=== PATIENT | male | born 1940 | race Hispanic/Latino ===

== ENCOUNTER 2019-01-20 06:19 | Day surgery (SDC) | payer MEDICARE ==
[2019-01-20] MEDS ORDERED: NACL 0.9% 500 ML 500 ML IV SCH (07:00)
[2019-01-20] MEDS ORDERED: HEPARIN 10,000 UNITS/10 ML ONE (08:23)
[2019-01-20] MEDS ORDERED: VERSED ONE (08:23)
[2019-01-20] MEDS ORDERED: XYLOCAINE 2% INFILTRATI ONE (08:23)
[2019-01-20] MEDS ORDERED: SUBLIMAZE ONE (08:23)
[2019-01-20] MEDS ORDERED: HEPARIN/NS 5000 UNIT/500ML(CATH LAB) 1,000 ML IR ONE (08:23)
[2019-01-20] MEDS ORDERED: NITROGLYCERIN SYRINGE 3 ML ONE (08:23)
[2019-01-20] MEDS ORDERED: CALAN ONE (08:23)
--- NOTE | 2019-01-20 09:59 | Short Stay Summary ---
Short Stay Documentation Date of service: 01/20/19 - History H&P: obtained from office - Allergies and Medications Current Medications: Allergies shellfish derived Allergy (Severe, Verified 01/20/19 07:37) Swelling iodine Adverse Reaction (Severe, Verified 01/20/19 07:37) Swelling Penicillins Adverse Reaction (Intermediate, Verified 01/20/19 07:37) Itching Home Medications Medication Instructions Recorded Confirmed Last Taken Type Aspirin [Adult Aspirin] 81 mg PO DAILY 01/20/19 01/20/19 01/19/19 History Clopidogrel [Plavix] 75 mg PO QDAY 01/20/19 01/20/19 01/19/19 History Gabapentin [Neurontin] 300 mg PO TID 01/20/19 01/20/19 01/19/19 History HYDROcodone/ACETAMINOPHEN 1 tab PO BID PRN 01/20/19 01/20/19 01/19/19 History [Hydrocodone-Acetamin 5-325 mg] Losartan [Cozaar] 100 mg PO QDAY 01/20/19 01/20/19 01/19/19 History Multivit with Calcium,Iron,Min 1 each PO DAILY 01/20/19 01/20/19 01/19/19 History [One Daily Women's] Omeprazole 40 mg PO DAILY 01/20/19 01/20/19 01/19/19 History Sertraline [Zoloft] 50 mg PO DAILY 01/20/19 01/20/19 01/19/19 History Triamterene/Hydrochlorothiazid 1 tab PO DAILY 01/20/19 01/20/19 01/19/19 History [Triamterene-Hctz 37.5-25 mg Tb] prednisoLONE [Millipred] 5 mg PO Q48HR 01/20/19 01/20/19 01/19/19 History Active Medications Sodium Chloride (Nacl 0.9% 500 Ml) 500 mls @ 50 mls/hr IV DIRECT TYLER Stop: 01/20/19 16:59 Last Admin: 01/20/19 07:39 Dose: 50 mls/hr Documented by: - Brief post op/procedure progress note Date of procedure: 01/20/19 Pre-op diagnosis: claudication Post-op diagnosis: same Procedure: see report Anesthesia: local Estimated blood loss: none Pathology: none - Disposition Condition at discharge: Good Disposition: [id number] TO HOME OR SELFCARE - Discharge Diagnoses (1) PAD (peripheral artery disease) Status: Acute (2) Hypertension Status: Chronic Qualifiers: Hypertension type: essential hypertension Qualified Code(s): I10 - Essential (primary) hypertension (3) Hyperlipemia, mixed Status: Chronic (4) Arthritis, rheumatoid Status: Chronic Short Stay Discharge Plan Activity: advance as tolerated Diet: low fat, low cholesterol, low salt Wound: keep clean and dry Follow up with: GIA SANTOS MD [Primary Care Provider] - 7 Days
[2019-01-20 10:16] VITALS: BP 147/62
--- NOTE | 2019-01-20 13:31 | Cardiac Catherization Report ---
PERIPHERAL ANGIOGRAM CLINICAL INFORMATION: This is a 79-year-old gentleman with history of hypertension and cholesterol who has been having claudication symptoms, abnormal ultrasound and is aspirin and Plavix with mild relief. He is here for peripheral angiogram. It was done under moderate sedation with 0.5 mg Versed and 50 mcg fentanyl. Start time was 8:41 a.m., finished at 8:56 a.m., that was 15 minutes of moderate supervised sedation. DESCRIPTION OF PROCEDURE: Procedure was performed via the right radial artery, sterile technique, local anesthesia, 6-[place] radial sheath inserted. Using a guidewire and a JR4 catheter, I was able to navigate into the descending aorta, exchanged out for a long pigtail catheter and angiogram done showed diffuse disease in the abdominal aorta with no gradient across the distal aorta to the mid on pullback. 1. Right common iliac patent, left common iliac focal 95% lesion, right external and left external iliac patent, bilateral internal iliacs patent with mild disease, bilateral common femoral artery is patent, right SFA proximal and mid patent, but distally there is calcification and 80% blockage with right popliteal patent with 3-vessel runoff. 2. Left SFA proximal to distal is patent with mild luminal irregularities. Right popliteal distal has an 80% lesion with a 3-vessel runoff noted. Catheter was taken over guidewire, 6-[place] radial sheath was discontinued, radial dressing applied. No hematoma, no bleeding. SUMMARY: 1. Abdominal aorta has diffuse disease with no gradient. Bilateral renals patent. 2. Right common iliac focal 95% lesion. 3. Right iliac system patent, left external iliac patent. 4. Right TOOL CRIB MANAGER, SFA proximal mid patent with distal calcified 80% with 3-vessel runoff. Popliteal patent. 5. Left SFA proximal and distal patent with left popliteal distal 80% with 3-vessel runoff. 6. We will do a staged SALES PROCESS MANAGER of the left common iliac artery. Explained this in detail with the patient. JOB# [id number] GRIFFIN/NALLELY
== END 2019-01-20 11:00 | disposition home or self-care (01) ==
LOC: CATHLABREC 06:19
PROVIDERS: ATTEND Internal Medicine
DX: I73.9 Peripheral vascular disease, unspecified (principal); I10 Essential (primary) hypertension; E78.00 Pure hypercholesterolemia, unspecified; F17.210 Nicotine dependence, cigarettes, uncomplicated; E78.2 Mixed hyperlipidemia; M06.9 Rheumatoid arthritis, unspecified; M19.90 Unspecified osteoarthritis, unspecified site; Z98.890 Other specified postprocedural states; Z83.3 Family history of diabetes mellitus; Z98.49 Cataract extraction status, unspecified eye; Z88.0 Allergy status to penicillin; Z91.041 Radiographic dye allergy status; Z91.013 Allergy to seafood; Z79.899 Other long term (current) drug therapy; Z79.82 Long term (current) use of aspirin; Z82.61 Family history of arthritis; Z82.49 Family history of ischemic heart disease and other diseases of the circulatory system
CPT/HCPCS: 36200; 75625; 75716; 99156; C1769; C1894; J1644; J2250; J3010; J7040; Q9967